=== PATIENT | female | born 1945 | race Caucasian/White ===

== ENCOUNTER 2020-04-24 11:40 | Inpatient (IN) ==
[2020-04-24] MEDS ORDERED: Ondansetron 4 MG/2 ML VIAL IVP ONE (12:35)
[2020-04-24] MEDS ORDERED: 0.9 % Sodium Chloride 1,000 ML IVC ONE (12:35)
[2020-04-24 14:15] LABS: Mean Corpuscular HGB Conc 33.3 g/dL (31.6-35.5); Mean Platelet Volume 9.8 fL (9.4-12.4); Platelet Count 202 K/mcL (140-400); Red Blood Count 3.75 M/mcL (3.82-4.97); Red Cell Distribution Width 13.2 % (11.5-14.5); White Blood Count 6.3 K/mcL (4.3-11.1)
[2020-04-24 14:41] LABS: Albumin 4.3 g/dL (3.5-5.7); Albumin/Globulin Ratio 1.7 (1.1-2.2); Bilirubin,Direct 0.1 mg/dL (0.0-0.2); Bilirubin,Indirect 0.8 mg/dL (0.0-1.0); Bilirubin,Total 0.9 mg/dL (0.3-1.0); Calcium 9.7 mg/dL (8.6-10.3); Globulin 2.6 g/dL (2.4-3.5); Potassium 3.4 mEq/L (3.5-5.1); Total Protein 6.9 g/dL (6.4-8.9); Troponin I 0.04 ng/mL (< 0.04)
[2020-04-24 16:31] LABS: Bilirubin,Urine Negative (Negative); Blood,Urine Negative (Negative); Clarity,Urine Clear (Clear); Color,Urine Colorless (Yellow); Glucose,Urine (UA) Normal (Normal); Ketones,Urine Negative (Negative); Leukocyte Esterase,Urine Negative (Negative); Nitrite,Urine Negative (Negative); PH,Urine 7.5 pH Units (5.0-8.0); Protein,Urine Negative (Neg-Trace); Specific Gravity,Urine 1.008 (1.010-1.025); Urobilinogen,Urine Normal (Normal)
[2020-04-24] MEDS ORDERED: Ondansetron 4 MG/2 ML VIAL IVP PRN (16:46)
[2020-04-24] MEDS ORDERED: Naloxone 0.4 MG/ML INJ IVP PRN (16:46)
[2020-04-24] MEDS ORDERED: Acetaminophen 325 MG TABLET PO PRN (16:46)
[2020-04-24] MEDS ORDERED: *HR* HYDROmorphone (PF) 1 MG/ML SYRINGE IVP STA (17:44)
[2020-04-24] MEDS ORDERED: Nitroglycerin 0.4 MG TAB.SUBL SL PRN (18:44)
[2020-04-24] MEDS ORDERED: *HR* Dextrose 50 % in Water (Vial) 50 ML VIAL IVP PRN (18:46)
[2020-04-24] MEDS ORDERED: Dextrose Gel 15 GM/37.5 ML TUBE PO PRN ×2 (18:46)
[2020-04-24] MEDS ORDERED: D5% in Water 1,000 ML IVC PRN (18:46)
[2020-04-24 20:27] LABS: Calcium 9.1 mg/dL (8.6-10.3); Potassium 3.2 mEq/L (3.5-5.1)
[2020-04-24] MEDS: 0.9 % Sodium Chloride 1,000 ML IVC SCH (20:43)
[2020-04-24] MEDS: *HR* Heparin 5,000 UNIT/ML VIAL SQ SCH (20:44)
[2020-04-24] MEDS: Ranolazine 500 MG TAB.ER.12H PO SCH (20:44)
[2020-04-24] MEDS: Pregabalin 75 MG CAPSULE PO SCH (20:44)
[2020-04-24] MEDS ORDERED: Insulin LISPRO 300 UNITS/3 ML VIAL SQ SCH (21:00)
[2020-04-25] MEDS: *HR* HYDROmorphone (PF) 1 MG/ML SYRINGE IVP PRN ×2 (00:47→12:19)
[2020-04-25 02:48] LABS: Basophils % 0.4 %; Eosinophils # 0.1 K/mcL (0.0-0.6); Eosinophils % 1.4 %; Hematocrit 32.3 % (35.3-44.9); Hemoglobin 10.7 g/dL (11.5-15.4); Immature Granulocytes % 0.2 % (0-4); Lymphocytes # 1.1 K/mcL (0.6-4.6); Lymphocytes % 21.7 %; Mean Corpuscular HGB Conc 33.1 g/dL (31.6-35.5); Mean Corpuscular Hemoglobin 32.1 pg (28.0-33.3); Mean Platelet Volume 9.7 fL (9.4-12.4); Monocytes # 0.6 K/mcL (0.0-1.3); Monocytes % 11.8 %; Neutrophils # 3.2 K/mcL (1.6-8.9); Platelet Count 172 K/mcL (140-400); Red Blood Count 3.33 M/mcL (3.82-4.97); Red Cell Distribution Width 13.4 % (11.5-14.5); Segmented Neutrophils % 64.5 %; White Blood Count 4.9 K/mcL (4.3-11.1)
[2020-04-25 03:05] LABS: Calcium 8.5 mg/dL (8.6-10.3); Potassium 3.8 mEq/L (3.5-5.1)
[2020-04-25 03:06] LABS: Calcium 8.6 mg/dL (8.6-10.3); Magnesium 1.8 mg/dL (1.6-2.6); Potassium 3.8 mEq/L (3.5-5.1)
[2020-04-25] MEDS: 0.9 % Sodium Chloride 1,000 ML IVC SCH (05:25)
[2020-04-25] MEDS: *HR* Heparin 5,000 UNIT/ML VIAL SQ SCH ×3 (05:25→22:59)
[2020-04-25] MEDS: Insulin LISPRO 300 UNITS/3 ML VIAL SQ SCH ×2 (08:34→11:18)
[2020-04-25] MEDS: lisinopriL 5 MG TABLET PO SCH (08:51)
[2020-04-25] MEDS: Cholecalciferol (D-3) 1,000 UNIT (25MCG) TABLET PO SCH (08:52)
[2020-04-25] MEDS: Pregabalin 75 MG CAPSULE PO SCH (08:52)
[2020-04-25] MEDS: Ranolazine 500 MG TAB.ER.12H PO SCH ×2 (08:52→23:02)
[2020-04-25] MEDS ORDERED: Aspirin Enteric Coated 81 MG Tablet PO SCH (09:00)
[2020-04-25 10:57] LABS: Estimated Average Glucose 103 mg/dl
[2020-04-25] MEDS: Pregabalin 50 MG CAPSULE PO SCH ×2 (14:20→23:01)
[2020-04-25] MEDS: *HR* OxyCODONE ER (12 HR) 10 MG TABLET PO SCH (17:27)
[2020-04-25] MEDS: *HR* OxyCODONE Immed Rel 15 MG TABLET PO SCH (17:27)
[2020-04-25 19:08] LABS: % Iron Saturation 8 % (15-50); Iron 30 mcg/dL (50-170); Transferrin 269 mg/dL (203-362)
[2020-04-25 19:26] LABS: Ferritin 62 ng/mL (10-120)
[2020-04-25 19:31] LABS: Folate 7.5 ng/mL (3.0-16.0)
[2020-04-25] MEDS: Sennosides/Docusate Sodium TABLET PO SCH (23:00)
[2020-04-25] MEDS: Ascorbic Acid 500 MG TABLET PO SCH (23:00)
[2020-04-25] MEDS: Famotidine 20 MG TABLET PO SCH (23:00)
[2020-04-25] MEDS: Triamcinolone Acet 0.1% CRM 15 GM TUBE TP SCH (23:03)
[2020-04-26] MEDS: *HR* OxyCODONE Immed Rel 15 MG TABLET PO SCH ×2 (01:51→06:39)
[2020-04-26] MEDS: hydrOXYzine pamoate 25 MG CAPSULE PO PRN (01:55)
[2020-04-26] MEDS: *HR* Heparin 5,000 UNIT/ML VIAL SQ SCH ×3 (06:38→21:47)
[2020-04-26] MEDS: *HR* OxyCODONE ER (12 HR) 10 MG TABLET PO SCH (06:40)
[2020-04-26 07:59] LABS: Basophils % 0.4 %; Eosinophils # 0.2 K/mcL (0.0-0.6); Eosinophils % 3.1 %; Hematocrit 35.8 % (35.3-44.9); Hemoglobin 10.8 g/dL (11.5-15.4); Immature Granulocytes % 0.4 % (0-4); Immature Platelets 4.3 % (1.1-6.1); Lymphocytes # 1.2 K/mcL (0.6-4.6); Lymphocytes % 24.1 %; Mean Corpuscular HGB Conc 30.2 g/dL (31.6-35.5); Mean Corpuscular Hemoglobin 31.9 pg (28.0-33.3); Mean Corpuscular Volume 105.6 fL (83.0-100.0); Mean Platelet Volume 10.5 fL (9.4-12.4); Monocytes # 0.8 K/mcL (0.0-1.3); Monocytes % 15.3 %; Neutrophils # 2.9 K/mcL (1.6-8.9); Platelet Count 145 K/mcL (140-400); Red Blood Count 3.39 M/mcL (3.82-4.97); Segmented Neutrophils % 56.7 %; White Blood Count 5.1 K/mcL (4.3-11.1)
[2020-04-26 08:00] LABS: Platelet Estimate Normal (Normal)
[2020-04-26] MEDS: Famotidine 20 MG TABLET PO SCH (08:44)
[2020-04-26] MEDS: lisinopriL 5 MG TABLET PO SCH (08:45)
[2020-04-26] MEDS: Cholecalciferol (D-3) 1,000 UNIT (25MCG) TABLET PO SCH (08:45)
[2020-04-26] MEDS: Ranolazine 500 MG TAB.ER.12H PO SCH ×2 (08:45→21:48)
[2020-04-26] MEDS: Aspirin Enteric Coated 81 MG Tablet PO SCH (08:45)
[2020-04-26] MEDS: Ascorbic Acid 500 MG TABLET PO SCH ×2 (08:45→21:48)
[2020-04-26] MEDS: Pregabalin 50 MG CAPSULE PO SCH ×3 (08:46→21:47)
[2020-04-26] MEDS: Sennosides/Docusate Sodium TABLET PO SCH ×2 (08:46→21:48)
[2020-04-26] MEDS: Triamcinolone Acet 0.1% CRM 15 GM TUBE TP SCH ×2 (08:47→21:49)
[2020-04-26 12:25] LABS: Calcium 9.3 mg/dL (8.6-10.3); Potassium 4.5 mEq/L (3.5-5.1)
[2020-04-26 12:26] LABS: VBG HCO3 26 mEq/L (21-27); VBG PCO2 56 mmHg (41-51); VBG PH 7.27 pH Units (7.32-7.42); VBG PO2 47 mmHg (25-50)
[2020-04-26] MEDS ORDERED: *HR* Dextrose 25% in Water (Syg) 10 ML SYRINGE IVP ONE (13:02)
[2020-04-26 16:38] LABS: VBG HCO3 27 mEq/L (21-27); VBG PCO2 58 mmHg (41-51); VBG PH 7.27 pH Units (7.32-7.42); VBG PO2 84 mmHg (25-50)
[2020-04-26 19:11] LABS: VBG HCO3 27 mEq/L (21-27); VBG PCO2 60 mmHg (41-51); VBG PH 7.26 pH Units (7.32-7.42); VBG PO2 82 mmHg (25-50)
[2020-04-26] MEDS: ALPRAZolam 0.5 MG TABLET PO PRN (21:47)
[2020-04-27 02:30] LABS: Basophils % 0.4 %; Eosinophils # 0.2 K/mcL (0.0-0.6); Eosinophils % 2.9 %; Hematocrit 31.3 % (35.3-44.9); Hemoglobin 9.6 g/dL (11.5-15.4); Immature Granulocytes % 0.4 % (0-4); Lymphocytes # 1.3 K/mcL (0.6-4.6); Lymphocytes % 22.9 %; Mean Corpuscular HGB Conc 30.7 g/dL (31.6-35.5); Mean Corpuscular Hemoglobin 31.6 pg (28.0-33.3); Mean Platelet Volume 9.9 fL (9.4-12.4); Monocytes # 0.8 K/mcL (0.0-1.3); Neutrophils # 3.3 K/mcL (1.6-8.9); Platelet Count 164 K/mcL (140-400); Red Blood Count 3.04 M/mcL (3.82-4.97); Red Cell Distribution Width 13.6 % (11.5-14.5); Segmented Neutrophils % 58.4 %; White Blood Count 5.6 K/mcL (4.3-11.1)
[2020-04-27 02:39] LABS: Calcium 9.2 mg/dL (8.6-10.3); Magnesium 1.9 mg/dL (1.6-2.6); Potassium 4.1 mEq/L (3.5-5.1)
[2020-04-27] MEDS: *HR* Heparin 5,000 UNIT/ML VIAL SQ SCH ×3 (05:39→21:19)
[2020-04-27] MEDS ORDERED: 0.9 % Sodium Chloride 1,000 ML IV ONE (07:33)
[2020-04-27] MEDS: Pregabalin 50 MG CAPSULE PO SCH ×3 (08:49→21:20)
[2020-04-27] MEDS: Ranolazine 500 MG TAB.ER.12H PO SCH ×2 (08:49→21:20)
[2020-04-27] MEDS: Famotidine 20 MG TABLET PO SCH (08:49)
[2020-04-27] MEDS: Ascorbic Acid 500 MG TABLET PO SCH ×2 (08:49→21:19)
[2020-04-27] MEDS: Sennosides/Docusate Sodium TABLET PO SCH ×2 (08:49→21:21)
[2020-04-27] MEDS: Aspirin Enteric Coated 81 MG Tablet PO SCH (08:49)
[2020-04-27] MEDS: Cholecalciferol (D-3) 1,000 UNIT (25MCG) TABLET PO SCH (08:50)
[2020-04-27] MEDS: Triamcinolone Acet 0.1% CRM 15 GM TUBE TP SCH ×2 (08:50→22:01)
[2020-04-27] MEDS: *HR* OxyCODONE Immed Rel 5 MG TABLET PO PRN ×3 (08:59→21:21)
[2020-04-28] MEDS: ALPRAZolam 0.5 MG TABLET PO PRN (00:04)
[2020-04-28 05:26] LABS: Basophils % 0.4 %; Eosinophils # 0.2 K/mcL (0.0-0.6); Eosinophils % 2.8 %; Hematocrit 29.5 % (35.3-44.9); Hemoglobin 9.1 g/dL (11.5-15.4); Immature Granulocytes % 0.2 % (0-4); Lymphocytes # 1.1 K/mcL (0.6-4.6); Lymphocytes % 19.3 %; Mean Corpuscular HGB Conc 30.8 g/dL (31.6-35.5); Mean Corpuscular Hemoglobin 32.9 pg (28.0-33.3); Mean Corpuscular Volume 106.5 fL (83.0-100.0); Mean Platelet Volume 9.8 fL (9.4-12.4); Monocytes # 0.8 K/mcL (0.0-1.3); Monocytes % 14.7 %; Neutrophils # 3.4 K/mcL (1.6-8.9); Platelet Count 134 K/mcL (140-400); Red Blood Count 2.77 M/mcL (3.82-4.97); Red Cell Distribution Width 13.2 % (11.5-14.5); Segmented Neutrophils % 62.6 %; White Blood Count 5.4 K/mcL (4.3-11.1)
[2020-04-28 05:36] LABS: Calcium 8.7 mg/dL (8.6-10.3); Magnesium 1.8 mg/dL (1.6-2.6); Potassium 4.3 mEq/L (3.5-5.1)
[2020-04-28] MEDS: *HR* Heparin 5,000 UNIT/ML VIAL SQ SCH ×3 (06:43→21:30)
[2020-04-28] MEDS: Cholecalciferol (D-3) 1,000 UNIT (25MCG) TABLET PO SCH (07:58)
[2020-04-28] MEDS: Famotidine 20 MG TABLET PO SCH (07:58)
[2020-04-28] MEDS: Pregabalin 50 MG CAPSULE PO SCH ×3 (07:58→21:29)
[2020-04-28] MEDS: Aspirin Enteric Coated 81 MG Tablet PO SCH (07:58)
[2020-04-28] MEDS: Ranolazine 500 MG TAB.ER.12H PO SCH ×2 (07:58→21:29)
[2020-04-28] MEDS: Sennosides/Docusate Sodium TABLET PO SCH ×2 (07:59→21:29)
[2020-04-28] MEDS: Ascorbic Acid 500 MG TABLET PO SCH ×2 (07:59→21:29)
[2020-04-28] MEDS: Triamcinolone Acet 0.1% CRM 15 GM TUBE TP SCH ×2 (11:48→23:46)
[2020-04-28] MEDS: lisinopriL 5 MG TABLET PO SCH (11:49)
[2020-04-28] MEDS: *HR* OxyCODONE Immed Rel 5 MG TABLET PO PRN ×2 (14:45→21:33)
[2020-04-28] MEDS: hydrOXYzine pamoate 25 MG CAPSULE PO PRN (21:33)
[2020-04-29 04:01] LABS: Calcium 9.1 mg/dL (8.6-10.3); Magnesium 1.7 mg/dL (1.6-2.6); Potassium 4.2 mEq/L (3.5-5.1)
[2020-04-29 04:53] LABS: Basophils % 0.4 %; Eosinophils # 0.1 K/mcL (0.0-0.6); Eosinophils % 2.5 %; Hematocrit 34.5 % (35.3-44.9); Immature Granulocytes % 0.4 % (0-4); Lymphocytes # 0.8 K/mcL (0.6-4.6); Lymphocytes % 16.4 %; Mean Corpuscular HGB Conc 32.2 g/dL (31.6-35.5); Mean Corpuscular Hemoglobin 32.4 pg (28.0-33.3); Mean Corpuscular Volume 100.6 fL (83.0-100.0); Mean Platelet Volume 9.8 fL (9.4-12.4); Monocytes # 0.7 K/mcL (0.0-1.3); Monocytes % 13.5 %; Neutrophils # 3.4 K/mcL (1.6-8.9); Platelet Count 140 K/mcL (140-400); Red Blood Count 3.43 M/mcL (3.82-4.97); Red Cell Distribution Width 13.2 % (11.5-14.5); Segmented Neutrophils % 66.8 %; White Blood Count 5.1 K/mcL (4.3-11.1)
[2020-04-29 04:54] LABS: Hemoglobin 11.1 g/dL (11.5-15.4)
[2020-04-29] MEDS: *HR* Heparin 5,000 UNIT/ML VIAL SQ SCH ×3 (05:30→21:39)
[2020-04-29] MEDS: Cholecalciferol (D-3) 1,000 UNIT (25MCG) TABLET PO SCH (08:31)
[2020-04-29] MEDS: Sennosides/Docusate Sodium TABLET PO SCH ×2 (08:31→21:39)
[2020-04-29] MEDS: lisinopriL 5 MG TABLET PO SCH (08:32)
[2020-04-29] MEDS: Famotidine 20 MG TABLET PO SCH (08:32)
[2020-04-29] MEDS: Aspirin Enteric Coated 81 MG Tablet PO SCH (08:32)
[2020-04-29] MEDS: Pregabalin 50 MG CAPSULE PO SCH ×3 (08:32→21:38)
[2020-04-29] MEDS: Ascorbic Acid 500 MG TABLET PO SCH ×2 (08:32→21:39)
[2020-04-29] MEDS: Ranolazine 500 MG TAB.ER.12H PO SCH ×2 (08:32→21:39)
[2020-04-29] MEDS: *HR* OxyCODONE Immed Rel 5 MG TABLET PO PRN (08:38)
[2020-04-29] MEDS: Triamcinolone Acet 0.1% CRM 15 GM TUBE TP SCH ×2 (11:16→21:39)
[2020-04-29] MEDS ORDERED: Acetaminophen IV 1,000 MG/100 ML INFUS..BTL IVPB ONE (12:19)
[2020-04-29] MEDS: *HR* HYDROmorphone 2 MG TABLET PO PRN (13:50)
[2020-04-29] MEDS: amLODIPine 5 MG TABLET PO SCH (13:51)
[2020-04-29 14:45] LABS: Bilirubin,Urine Negative (Negative); Blood,Urine Negative (Negative); Clarity,Urine Clear (Clear); Color,Urine Yellow (Yellow); Glucose,Urine (UA) Normal (Normal); Granular Casts,Urine Few per lpf (None Seen); Hyaline Casts,Urine Few per lpf (None Seen); Ketones,Urine Trace mg/dL (Negative); Leukocyte Esterase,Urine Negative (Negative); Nitrite,Urine Negative (Negative); PH,Urine 5.5 pH Units (5.0-8.0); Protein,Urine 30 mg/dL (Neg-Trace); RBC,Urine 0-3 per hpf (0-3); Urobilinogen,Urine Normal (Normal); WBC,Urine 0-3 per hpf (0-3)
[2020-04-30 04:07] LABS: Basophils % 0.2 %; Eosinophils # 0.1 K/mcL (0.0-0.6); Eosinophils % 1.1 %; Hematocrit 29.4 % (35.3-44.9); Hemoglobin 9.6 g/dL (11.5-15.4); Immature Granulocytes % 0.3 % (0-4); Lymphocytes # 0.5 K/mcL (0.6-4.6); Lymphocytes % 6.9 %; Mean Corpuscular HGB Conc 32.7 g/dL (31.6-35.5); Mean Corpuscular Hemoglobin 31.9 pg (28.0-33.3); Mean Corpuscular Volume 97.7 fL (83.0-100.0); Mean Platelet Volume 9.9 fL (9.4-12.4); Monocytes # 0.7 K/mcL (0.0-1.3); Neutrophils # 5.3 K/mcL (1.6-8.9); Platelet Count 156 K/mcL (140-400); Red Blood Count 3.01 M/mcL (3.82-4.97); Red Cell Distribution Width 13.2 % (11.5-14.5); Segmented Neutrophils % 80.5 %; White Blood Count 6.6 K/mcL (4.3-11.1)
[2020-04-30 04:29] LABS: Calcium 9.3 mg/dL (8.6-10.3); Magnesium 1.6 mg/dL (1.6-2.6)
[2020-04-30] MEDS: *HR* HYDROmorphone 2 MG TABLET PO PRN ×2 (04:33→09:20)
[2020-04-30] MEDS: *HR* Heparin 5,000 UNIT/ML VIAL SQ SCH ×3 (04:33→20:15)
[2020-04-30] MEDS: Ascorbic Acid 500 MG TABLET PO SCH ×2 (09:19→20:15)
[2020-04-30] MEDS: Pregabalin 50 MG CAPSULE PO SCH ×3 (09:19→20:15)
[2020-04-30] MEDS: lisinopriL 5 MG TABLET PO SCH (09:19)
[2020-04-30] MEDS: Aspirin Enteric Coated 81 MG Tablet PO SCH (09:19)
[2020-04-30] MEDS: Sennosides/Docusate Sodium TABLET PO SCH ×2 (09:19→20:15)
[2020-04-30] MEDS: amLODIPine 5 MG TABLET PO SCH (09:19)
[2020-04-30] MEDS: Ranolazine 500 MG TAB.ER.12H PO SCH ×2 (09:20→20:15)
[2020-04-30] MEDS: Famotidine 20 MG TABLET PO SCH (09:20)
[2020-04-30] MEDS: Cholecalciferol (D-3) 1,000 UNIT (25MCG) TABLET PO SCH (09:21)
[2020-04-30] MEDS: Triamcinolone Acet 0.1% CRM 15 GM TUBE TP SCH ×2 (09:21→20:16)
[2020-05-01] MEDS: *HR* Heparin 5,000 UNIT/ML VIAL SQ SCH ×3 (05:12→22:01)
[2020-05-01] MEDS: Famotidine 20 MG TABLET PO SCH (08:28)
[2020-05-01] MEDS: *HR* HYDROmorphone 2 MG TABLET PO PRN (08:29)
[2020-05-01] MEDS: Sennosides/Docusate Sodium TABLET PO SCH ×2 (08:29→22:00)
[2020-05-01] MEDS: lisinopriL 5 MG TABLET PO SCH (08:29)
[2020-05-01] MEDS: Pregabalin 50 MG CAPSULE PO SCH ×3 (08:29→22:00)
[2020-05-01] MEDS: Aspirin Enteric Coated 81 MG Tablet PO SCH (08:29)
[2020-05-01] MEDS: Ranolazine 500 MG TAB.ER.12H PO SCH ×2 (08:29→22:00)
[2020-05-01] MEDS: amLODIPine 5 MG TABLET PO SCH (08:29)
[2020-05-01] MEDS: Ascorbic Acid 500 MG TABLET PO SCH ×2 (08:29→22:00)
[2020-05-01] MEDS: Cholecalciferol (D-3) 1,000 UNIT (25MCG) TABLET PO SCH (08:30)
[2020-05-01] MEDS: Triamcinolone Acet 0.1% CRM 15 GM TUBE TP SCH ×2 (08:30→22:01)
[2020-05-01 09:10] LABS: BUN/Creatinine Ratio 18 (6-26); Blood Urea Nitrogen 16 mg/dL (8-23); Carbon Dioxide 26 mEq/L (23-29); Chloride 97 mEq/L (98-107); Glucose 103 mg/dL (70-105); Magnesium 1.6 mg/dL (1.6-2.6); Osmolality,Calculated 279 (280-300); Phosphorous 2.2 mg/dL (2.7-4.5); Potassium 3.6 mEq/L (3.5-5.1); Sodium 134 mEq/L (136-145); eGFR For African Americans > 60 (> 60); eGFR For Non-African Americans > 60 (> 60)
[2020-05-01] MEDS ORDERED: *HR* FentaNYL PATCH 12 MCG PATCH TD SCH (10:00)
[2020-05-01] MEDS ORDERED: dexAMETHasone 4 MG TABLET PO SCH (10:00)
[2020-05-01] MEDS: dexAMETHasone 4 MG TABLET PO SCH ×2 (11:52→22:00)
[2020-05-02] MEDS: *HR* Heparin 5,000 UNIT/ML VIAL SQ SCH (05:44)
[2020-05-02] MEDS: Cholecalciferol (D-3) 1,000 UNIT (25MCG) TABLET PO SCH (08:36)
[2020-05-02] MEDS: Sennosides/Docusate Sodium TABLET PO SCH (08:36)
[2020-05-02] MEDS: Ranolazine 500 MG TAB.ER.12H PO SCH (08:36)
[2020-05-02] MEDS: Aspirin Enteric Coated 81 MG Tablet PO SCH (08:36)
[2020-05-02] MEDS: amLODIPine 5 MG TABLET PO SCH (08:36)
[2020-05-02] MEDS: Pregabalin 50 MG CAPSULE PO SCH (08:36)
[2020-05-02] MEDS: dexAMETHasone 4 MG TABLET PO SCH (08:36)
[2020-05-02] MEDS: Famotidine 20 MG TABLET PO SCH (08:37)
[2020-05-02] MEDS: Ascorbic Acid 500 MG TABLET PO SCH (08:37)
[2020-05-02] MEDS: lisinopriL 5 MG TABLET PO SCH (08:37)
[2020-05-02] MEDS: Triamcinolone Acet 0.1% CRM 15 GM TUBE TP SCH (08:41)
[2020-05-02 11:21] VITALS: BP 116/54
== END 2020-05-02 13:17 | DRG 947 ==
LOC: EMEROOARM 11:40 → 2ANU 11:40 → SUATTDRO 16:39 → 2ANU 18:45 → SUATTDRO 04-25 12:59
PROVIDERS: ADMIT Pharmacist; ATTEND Internal Medicine

== ENCOUNTER 2020-05-26 17:32 | Observation (INO) ==
[2020-05-26] MEDS ORDERED: 0.9 % Sodium Chloride 1,000 ML IVC ONE (18:14)
[2020-05-26 19:09] LABS: INR 1.3; Prothrombin Time 14.7 Seconds (9.4-12.1)
[2020-05-26 19:12] LABS: Activated Partial Thrombo Time 31.1 Seconds (26.0-36.0)
[2020-05-26 19:28] LABS: Albumin 3.3 g/dL (3.5-5.7); Albumin/Globulin Ratio 1.2 (1.1-2.2); Bilirubin,Direct 0.3 mg/dL (0.0-0.2); Bilirubin,Indirect 0.5 mg/dL (0.0-1.0); Bilirubin,Total 0.8 mg/dL (0.3-1.0); Calcium 8.7 mg/dL (8.6-10.3); Globulin 2.7 g/dL (2.4-3.5); Potassium 2.7 mEq/L (3.5-5.1); Troponin I 0.04 ng/mL (< 0.04)
[2020-05-26 19:41] LABS: Basophils % 0.6 %; Eosinophils # 0.3 K/mcL (0.0-0.6); Eosinophils % 6.5 %; Hematocrit 35.3 % (35.3-44.9); Hemoglobin 11.7 g/dL (11.5-15.4); Immature Granulocytes % 0.6 % (0-4); Lymphocytes # 0.6 K/mcL (0.6-4.6); Mean Corpuscular HGB Conc 33.1 g/dL (31.6-35.5); Mean Corpuscular Volume 90.5 fL (83.0-100.0); Mean Platelet Volume 9.8 fL (9.4-12.4); Monocytes # 0.6 K/mcL (0.0-1.3); Monocytes % 13.6 %; Platelet Count 275 K/mcL (140-400); Red Cell Distribution Width 13.9 % (11.5-14.5); Segmented Neutrophils % 65.7 %; White Blood Count 4.6 K/mcL (4.3-11.1)
[2020-05-26 21:28] LABS: Bacteria,Urine Few per hpf (None-Few); Bilirubin,Urine Negative (Negative); Blood,Urine Trace (Negative); Clarity,Urine Turbid (Clear); Color,Urine Yellow (Yellow); Glucose,Urine (UA) Normal (Normal); Hyaline Casts,Urine Few per lpf (None Seen); Ketones,Urine Negative (Negative); Leukocyte Esterase,Urine Large (Negative); Mucus,Urine Few per lpf (None-Few); Nitrite,Urine Positive (Negative); PH,Urine 5.5 pH Units (5.0-8.0); Protein,Urine Trace mg/dL (Neg-Trace); Renal Epithelial Cells,Urine Few per hpf (None-Few); Squamous Epithelial Cell,Urine Moderate per hpf (None-Few); Urobilinogen,Urine Normal (Normal); WBC,Urine 50-100 per hpf (0-3)
[2020-05-26] MEDS ORDERED: cefTRIAXone 1,000 MG in 0.9 % Sodium Chloride Mini Bag 100 ML IVPB ONE (21:49)
[2020-05-26] MEDS ORDERED: Naloxone 0.4 MG/ML INJ IVP PRN (23:29)
[2020-05-26] MEDS ORDERED: 0.9 % Sodium Chloride 1,000 ML IVC SCH (23:30)
[2020-05-26] MEDS ORDERED: Dextrose Gel 15 GM/37.5 ML TUBE PO PRN ×2 (23:49)
[2020-05-26] MEDS ORDERED: D5% in Water 1,000 ML IVC PRN (23:49)
[2020-05-26] MEDS ORDERED: *HR* Dextrose 50 % in Water (Vial) 50 ML VIAL IVP PRN (23:49)
[2020-05-27] MEDS: Insulin LISPRO 300 UNITS/3 ML VIAL SQ SCH ×4 (00:19→16:09)
[2020-05-27] MEDS: Ondansetron 4 MG/2 ML VIAL IVP PRN ×2 (00:53→11:59)
[2020-05-27 06:47] LABS: Basophils % 0.6 %; Eosinophils # 0.4 K/mcL (0.0-0.6); Eosinophils % 7.2 %; Hematocrit 32.5 % (35.3-44.9); Hemoglobin 10.7 g/dL (11.5-15.4); Immature Granulocytes % 0.4 % (0-4); Lymphocytes # 0.8 K/mcL (0.6-4.6); Lymphocytes % 14.8 %; Mean Corpuscular HGB Conc 32.9 g/dL (31.6-35.5); Mean Corpuscular Hemoglobin 30.2 pg (28.0-33.3); Mean Corpuscular Volume 91.8 fL (83.0-100.0); Mean Platelet Volume 9.2 fL (9.4-12.4); Monocytes # 0.8 K/mcL (0.0-1.3); Monocytes % 16.2 %; Neutrophils # 3.1 K/mcL (1.6-8.9); Platelet Count 299 K/mcL (140-400); Red Blood Count 3.54 M/mcL (3.82-4.97); Red Cell Distribution Width 14.2 % (11.5-14.5); Segmented Neutrophils % 60.8 %; White Blood Count 5.1 K/mcL (4.3-11.1)
[2020-05-27 07:13] LABS: Albumin 3.2 g/dL (3.5-5.7); Albumin/Globulin Ratio 1.3 (1.1-2.2); Bilirubin,Total 0.7 mg/dL (0.3-1.0); Calcium 8.4 mg/dL (8.6-10.3); Globulin 2.5 g/dL (2.4-3.5); Potassium 3.5 mEq/L (3.5-5.1); Total Protein 5.7 g/dL (6.4-8.9); Troponin I 0.04 ng/mL (< 0.04)
[2020-05-27] MEDS: *HR* Heparin 5,000 UNIT/ML VIAL SQ SCH ×3 (08:41→21:27)
[2020-05-27] MEDS ORDERED: *HR* FentaNYL PATCH 25 MCG PATCH TD SCH (10:15)
[2020-05-27] MEDS: dexAMETHasone 4 MG TABLET PO SCH ×2 (10:28→21:28)
[2020-05-27] MEDS: *HR* HYDROcodone/Acet 5/325 mg TABLET PO PRN ×2 (11:59→21:27)
[2020-05-27 14:18] LABS: Calcium 8.2 mg/dL (8.6-10.3); Potassium 3.5 mEq/L (3.5-5.1)
[2020-05-27] MEDS: Sennosides/Docusate Sodium TABLET PO SCH (21:27)
[2020-05-27] MEDS ORDERED: cefTRIAXone 1,000 MG in 0.9 % Sodium Chloride Mini Bag 100 ML IVPB SCH (22:00)
[2020-05-28 04:57] LABS: Hematocrit 32.4 % (35.3-44.9); Hemoglobin 10.4 g/dL (11.5-15.4); Mean Corpuscular HGB Conc 32.1 g/dL (31.6-35.5); Mean Corpuscular Hemoglobin 29.2 pg (28.0-33.3); Mean Platelet Volume 9.9 fL (9.4-12.4); Platelet Count 331 K/mcL (140-400); Red Blood Count 3.56 M/mcL (3.82-4.97); Red Cell Distribution Width 13.8 % (11.5-14.5); White Blood Count 3.4 K/mcL (4.3-11.1)
[2020-05-28 05:13] LABS: BUN/Creatinine Ratio 16 (6-26); Blood Urea Nitrogen 17 mg/dL (8-23); Calcium 8.5 mg/dL (8.6-10.3); Carbon Dioxide 23 mEq/L (23-29); Chloride 99 mEq/L (98-107); Glucose 157 mg/dL (70-105); Osmolality,Calculated 283 (280-300); Potassium 3.9 mEq/L (3.5-5.1); Sodium 134 mEq/L (136-145); eGFR For African Americans > 60 (> 60); eGFR For Non-African Americans 50 (> 60)
[2020-05-28] MEDS: *HR* Heparin 5,000 UNIT/ML VIAL SQ SCH ×3 (05:51→20:05)
[2020-05-28] MEDS: *HR* HYDROcodone/Acet 5/325 mg TABLET PO PRN ×3 (05:51→22:22)
[2020-05-28] MEDS: Sennosides/Docusate Sodium TABLET PO SCH ×2 (08:01→20:05)
[2020-05-28] MEDS: dexAMETHasone 4 MG TABLET PO SCH ×2 (08:01→20:05)
[2020-05-28] MEDS: Insulin LISPRO 300 UNITS/3 ML VIAL SQ SCH ×3 (08:02→16:24)
[2020-05-28] MEDS: cephALEXin 500 MG CAPSULE PO SCH ×2 (09:25→20:05)
[2020-05-28] MEDS: ALPRAZolam 0.5 MG TABLET PO PRN (22:22)
[2020-05-29 02:28] LABS: Hemoglobin 9.7 g/dL (11.5-15.4); Mean Corpuscular HGB Conc 33.4 g/dL (31.6-35.5); Mean Corpuscular Hemoglobin 29.5 pg (28.0-33.3); Mean Corpuscular Volume 88.1 fL (83.0-100.0); Mean Platelet Volume 9.5 fL (9.4-12.4); Platelet Count 372 K/mcL (140-400); Red Blood Count 3.29 M/mcL (3.82-4.97); Red Cell Distribution Width 13.7 % (11.5-14.5)
[2020-05-29 02:31] LABS: White Blood Count 6.8 K/mcL (4.3-11.1)
[2020-05-29 02:49] LABS: Calcium 7.8 mg/dL (8.6-10.3); Potassium 3.7 mEq/L (3.5-5.1)
[2020-05-29] MEDS: ALPRAZolam 0.5 MG TABLET PO PRN (05:37)
[2020-05-29] MEDS: *HR* HYDROcodone/Acet 5/325 mg TABLET PO PRN ×2 (05:37→15:05)
[2020-05-29] MEDS: *HR* Heparin 5,000 UNIT/ML VIAL SQ SCH (05:38)
[2020-05-29] MEDS: Insulin LISPRO 300 UNITS/3 ML VIAL SQ SCH ×2 (09:12→13:41)
[2020-05-29] MEDS: Sennosides/Docusate Sodium TABLET PO SCH (09:13)
[2020-05-29] MEDS: dexAMETHasone 4 MG TABLET PO SCH (09:13)
[2020-05-29] MEDS: cephALEXin 500 MG CAPSULE PO SCH (09:13)
[2020-05-29] MEDS ORDERED: *HR* HYDROmorphone (PF) 1 MG/ML SYRINGE IVP ONE (09:49)
[2020-05-29 12:40] VITALS: BP 156/75
== END 2020-05-29 15:20 | disposition hospice, home (50) ==
LOC: EMEROOARM 17:32 → 3BNU 17:32 → SUATTDRO 22:17 → 3BNU 23:10
PROVIDERS: ADMIT Internal Medicine; ATTEND Nurse Practitioner Adult Health